=== PATIENT | female | born 1985 | race Asian ===

== ENCOUNTER 2018-11-15 11:50 | Inpatient (IN) | payer MEDICAID ==
[~2018-11-15] VITALS: Ht 154.9 cm; Wt 57.6 kg
--- NOTE | 2018-11-15 11:54 | PREOPHP ---
DATE OF ADMISSION: 11/15/2018 HISTORY OF PRESENT ILLNESS: This is a 33-year-old lady, 3, para 2, EDC November 22, 2018, at 39 weeks . Admitted to labor and delivery area for repeat . She had her EDC of October 292018, at 39 weeks , admitted for repeat . She has 2 previous C-sections. The pr ocedure was explained to the patient and she understood everything totally. The risks, benefits, and alternatives were discussed with her as well. PAST PERSONAL HISTORY: No history of diabetes, TB, asthma. ALLERGIES: NO ALLERGIES. SOCIAL HISTORY: The patient does not smoke. She does drink. She does not take any drugs except her iron and vitamins. OBSTETRICAL HISTORY: 3, para 2. Her first delivery was in 2010, second was in 2014, both by . FAMILY HISTORY: Father has hypertension. The patient is 3, para 2 with 2 previous s. REVIEW OF SYSTEMS: CARDIOVASCULAR: No chest pains. RESPIRATORY: No cough. GASTROINTESTINAL: No diarrhea, no vomiting. GENITOURINARY: No dysuria. PHYSICAL EXAMINATION: GENERAL: Reveals a conscious, coherent lady and in no acute distress. VITAL SIGNS: Blood pressure 130/90, pulse rate 80 per minute, respirations 16. BREASTS, HEART AND LUNGS: Within normal limits. ABDOMEN: Soft. No organomegaly. TRACK RIDER AND PELVIC: heart tones 140 per minute. Pelvic exam revealed the cervix to be closed, sta tion floating in cephalic presentation with the bag of water intact. EXTREMITIES: No pedal edema. ADMITTING DIAGNOSIS: A 39 weeks' intrauterine with 2 previous C-sections. The patient was planned to have a repeat . The procedure was explained to the patient, and she understood everything totally. The risks, benefits, and alternatives were discussed with her as well including tubal ligation. Dictated By: MICHELLE LIN/BORA Conf#: [id number] DID#: [id number]
[2018-11-15 12:05] VITALS: Ht 154.9 cm; Wt 57.6 kg
[2018-11-15 12:30] VITALS: BP 111/56; PULSE 91; RESP 18
[2018-11-15] MEDS ORDERED: CEFAZOLIN 2 GM/50 ML (PMX) 50 ML IVPB SCH (12:30)
[2018-11-15] MEDS ORDERED: PREN-93 PO (12:30)
[2018-11-15] MEDS ORDERED: OXYTOCIN 30 UNITS/LR 500 ML IV SCH ×2 (12:30→15:21)
[2018-11-15] MEDS ORDERED: METHYLERGONOVINE 0.2 MG INJ IM PRN ×2 (12:30→15:30)
[2018-11-15] MEDS ORDERED: MISOPROSTOL 200 MCG TAB PR PRN ×2 (12:30→15:30)
[2018-11-15] MEDS ORDERED: CARBOPROST 250 MCG INJ IM PRN ×2 (12:30→15:30)
[2018-11-15] MEDS ORDERED: OXYTOCIN 30 UNITS/LR 500 ML IV PRN ×2 (12:30→15:30)
[2018-11-15] MEDS: LACTATED RINGER'S 1,000 ML IV SCH ×2 (12:32→22:44)
--- NOTE | 2018-11-15 13:00 | PREAC ---
Date/Time of Note Date/Time of Note DATE: 11/15/18 TIME: 12:59 Anesthesia Eval and Record Evaluation Time Pre-Procedure Interview DATE: 11/15/18 TIME: 12:59 Age 33 Sex female NPO: 8 hrs Preoperative diagnosis iup at 39 weeks Planned procedure repeat c section Past Medical History Past Medical History: None Surgery & Anesthesia Issues No known issue Meds Anticoagulation: No Beta Sarah within 24 hr: No Reason Beta Sarah not given: Pt. not on B-Sarah Reported Medications Vit No.124/Iron/FA ( Vitamin Tablet) 1 Each Tablet, 1 EACH PO DAILY, TAB 11/15/18 Current Medications Lactated Ringer's 1,000 ml @ 125 mls/hr Q8H IV Last administered on 11/15/18at 12:32; Admin Dose 125 MLS/HR; Start 11/15/18 at 12:06 Cefazolin Sodium/ Dextrose 50 ml @ 100 mls/hr ONCE IVPB ; Start 11/15/18 at 12:30 Oxytocin/Lactated Ringer's 500 ml @ 125 mls/hr POST IV ; Start 11/15/18 at 12:30 Oxytocin/Lactated Ringer's 500 ml @ 0 mls/hr ONCE PRN IV .VAGINAL BLEEDING; Start 11/15/18 at 12:30 Methylergonovine Maleate (Methergine) 0.2 mg ONCE PRN IM .VAGINAL BLEEDING; Start 11/15/18 at 12:30 Carboprost Tromethamine (Hemabate) 250 mcg ONCE PRN IM .VAGINAL BLEEDING; Start 11/15/18 at 12:30 Misoprostol (Cytotec) 1,000 mcg ONCE PRN LA .VAGINAL BLEEDING; Start 11/15/18 at 12:30 Meds reviewed: Yes Allergies Coded Allergies: No Known Allergy (Unverified , 11/15/18) Allergies Reviewed: Yes Labs/Studies Labs Reviewed: Reviewed by anesthesiologist Result Diagram: 11/15/18 1205 Laboratory Tests 11/15/18 12:05 test: Positive Pre-procedure Exam Last vitals Vital Signs Date Temp Pulse Resp B/P (MAP) Pulse Ox O2 O2 Flow FiO2 Time Delivery Rate 11/15/18 98.7 91 18 111/56 Room Air 12:30 (74) Airway: Adequate mouth opening, Adequate thyromental dist Mallampati: Mallampati I Teeth: Normal Lung: Normal Heart: Normal ASA Physical Status ASA physical status: 2 Emergency: None Planned Anesthetic Neuraxial: Spinal Planned Pain Management Sub-arachniod narcotics Pre-operative Attestations Prior to commencing anesthesia and surgery, the patient was re-evaluated, there was verification of: *The patient's identity *The results of appropriate recent lab work and preoperative vital signs *The above evaluation not changing prior to induction *Anesthetic plan, risk benefits, alternative and complications discussed with patient/family; questions answered; patient/family understands, accepts and wishes to proceed. LANCE MENDENHALL Nov 15, 2018 13:00
[2018-11-15] MEDS ORDERED: DEXAMETHASONE 4 MG/ML 1 ML INJ ONE (14:15)
[2018-11-15] MEDS ORDERED: ONDANSETRON 4 MG INJ ONE (14:15)
[2018-11-15] MEDS ORDERED: OXYTOCIN 30 UNITS/LR 500 ML IV ONE (14:16)
[2018-11-15] MEDS ORDERED: PHENYLephrine (100 MCG/ML) 10ML SYG ONE (14:28)
[2018-11-15] MEDS ORDERED: morphine SULFATE/PF (10 MG/10 ML) INJ ONE (14:28)
[2018-11-15] MEDS ORDERED: TRIAMCINOLONE ACET 40 MG/ML INJ INJ STA ×2 (14:40)
[2018-11-15] MEDS ORDERED: HYDROmorphONE 0.5 MG/0.5 ML SYG IV PRN ×2 (15:00)
[2018-11-15] MEDS ORDERED: ZOLPIDEM 5 MG TAB PO PRN (15:00)
[2018-11-15] MEDS ORDERED: NALOXONE (0.4 MG/ML) INJ IV PRN (15:00)
[2018-11-15] MEDS ORDERED: KETOROLAC 30 MG INJ IV PRN (15:00)
[2018-11-15] MEDS ORDERED: DIPHENHYDRAMINE 50 MG INJ IV PRN (15:00)
[2018-11-15] MEDS ORDERED: ONDANSETRON 4 MG INJ IV PRN (15:00)
[2018-11-15] MEDS ORDERED: LACTATED RINGER'S 1,000 ML IV SCH (15:21)
--- NOTE | 2018-11-15 15:21 | OPPN ---
Date/Time of Note Date/Time of Note DATE: 11/15/18 TIME: 15:20 Operative Report Planned Procedure Procedure date Nov 15, 2018 Procedure(s) REPEAT CSECTION Performed by see signature line Accountant Machine Processing: CHARLES CRUZ MD 2nd Accountant Machine Processing none Pre-procedure diagnosis 39 WEEKS IUP PREVIOS CSECTION [id number] Anesthesia Type: [id number] spinal Post-Procedure Post-procedure diagnosis 39 WEEKS IUP PREVIOS CSECTION Findings Live Baby BOY, Apgars 8and 9, [id number] 8OZ Estimated Blood Loss: 500 - 600 mls Specimen(s) none Grafts/Implant(s) PLACENTA Complication(s) none MICHELLE AYALA MD Nov 15, 2018 15:21
[2018-11-15] MEDS ORDERED: LANOLIN HPA 1 PKT TOP PRN (15:30)
[2018-11-15] MEDS ORDERED: METHYLERGONOVINE 0.2 MG TAB PO PRN (15:30)
--- NOTE | 2018-11-15 15:43 | PAC ---
Date/Time of Note Date/Time of Note DATE: 11/15/18 TIME: 15:42 Post-Anesthesia Notes Post-Anesthesia Note Last documented vital signs Vital Signs Date Temp Pulse Resp B/P (MAP) Pulse Ox O2 O2 Flow FiO2 Time Delivery Rate 11/15/18 98.7 91 18 111/56 97 Room Air 1540 (74) Activity: WNL Respiratory function: WNL Cardiovascular function: WNL Mental status: Baseline Pain reasonably controlled: Yes Hydration appropriate: Yes Nausea/Vomiting absent: Yes LANCE MENDENHALL Nov 15, 2018 15:43
[2018-11-15 17:26] VITALS: BP 112/69; PULSE 66; RESP 18
[2018-11-15 18:49] VITALS: BP 117/76; PULSE 67; RESP 67
[2018-11-15 20:00] VITALS: BP 117/65; PULSE 66; RESP 19
[2018-11-15] MEDS: SENNA/DOCUSATE NA (8.6MG/50MG) TAB PO SCH (21:26)
[2018-11-16] VITALS: BP 105/65; PULSE 61
[2018-11-16 04:00] VITALS: BP 106/66; PULSE 62; RESP 19
[2018-11-16] MEDS: LACTATED RINGER'S 1,000 ML IV SCH ×3 (06:42→20:06)
[2018-11-16 07:45] VITALS: BP 91/53; PULSE 65; RESP 18
[2018-11-16] MEDS: SENNA/DOCUSATE NA (8.6MG/50MG) TAB PO SCH ×2 (09:00→20:30)
[2018-11-16] MEDS ORDERED: HYDROCODONE/APAP (5/325) TAB PO PRN ×2 (09:30)
--- NOTE | 2018-11-16 09:39 | OPR ---
DATE OF OPERATION: 11/15/2018 PREOPERATIVE DIAGNOSIS: A 39 weeks' intrauterine , with 2 previous sections, disch arged, a repeat section. POSTOPERATIVE DIAGNOSIS: A 39 weeks' intrauterine , with 2 previous sections, disc harged, a repeat . OPERATION PERFORMED: Repeat low transverse section. SURGEON: Michelle Ayala MD ARCHITECTURAL ENGINEER: Dr. Mendez ANESTHESIA: Spinal. ANESTHESIOLOGIST: Dr. Tena. OPERATION PERFORMED: Repeat low transverse section. OPERATIVE TECHNIQUE: Under spinal anesthesia, the patient was prepped and draped in the usual fashio n for abdominal surgery. After checking for the effect of the anesthesia, Pfannenstiel incision, 10 cm skin incision was performed. Prior to the surgery it was discussed with the patient and with her the type of incision to be done and she agreed to go for the Pfannenstiel incision. She has a long midline incision from her 2 previous section. Then, a Pfannenstiel incision, 10 cm s kin incision was performed. The incision was carried from the skin up to the fascia. Upon opening t he skin up to the fascia, small blood vessels were noted to be oozing and these were all cauterized. Fascia was opened transversely followed by splitting the muscles vertical and the peritoneum vertica lly. Upon opening the abdominal cavity, the bladder blade was put in place. No adhesions were noted . An incision was performed on the lower uterine segment. The incision was carried from the serosa up to the endometrium, and the marian was carried sideways with the aid of my 2 fingers. My left hand was inserted on the lower segment of the uterus and the bag of water was ruptured. Clear fluid was n oted. Baby's head was delivered. Baby's airways was quickly suctioned with amniotic fluid. There w as 1 loop of cord around the baby's neck that needs to be released prior to the delivery of the rest of the body of the baby. The baby was quickly suctioned with amniotic fluid. Baby's cord was clampe d after 30 seconds and baby was handed to the staff respiratory therapist and to the nursery nurse. The placent a was delivered manually and complete. The uterus was exteriorized. The uterus was cleansed with we t lap sponge to make sure that no membranes were left behind. After correct sponge count, the uterus was closed in the usual fashion using #1 chromic for the first layer, continuous locking sutur e was used followed by #1 chromic for the second layer, imbricating sutures were used. Bleeders were checked, and there was no bleeding noted. After checking for any bleeders in which there were none, both tubes and ovaries were inspected. They were healthy looking. Broad ligament were checked for any hematoma and there was none noted. The uterus was put back to the pelvic cavity. Once again, ut erine incision was checked for any bleeders and there was no bleeding noted. After correct sponge co unt, needle count and instrument count as confirmed by the pharmacy resource tech and drilling contractor, the abdomen was closed in the usual fashion using 0 Vicryl for the peritoneum, 0 Vicryl for the muscles, for the fas shayan 0 Vicryl continuous stitch was used followed by a few [id number] suture for the subcutaneous tissue, it was closed with 3-0 Vicryl and the skin was closed with 3-0 Vicryl, subcuticular suture w as used. The patient tolerated the procedure well. The skin was infiltrated with Kenalog cream 40 i n 10 mL to prevent keloid formation. She had keloid formation from the first 2 C-sections, so the sk in care solution was injected beneath the skin along the incision. Estimated blood loss about 600 mL . Vital signs were stable during and after the procedure. She delivered a healthy baby boy on 11/15, 8 and 9, at 1434 p.m. weighing 6 pounds 8 ounces, 2945 grams, 19 inches long. Dictated By: MICHELLE AYALA MD NS/BORA Conf#: [id number] DID#: [id number] CC: KENDAL MIRANDA MD;*EndCC*
[2018-11-16 12:13] VITALS: BP 95/51; PULSE 66; RESP 18
[2018-11-16 15:30] VITALS: BP 100/58; PULSE 73; RESP 16
--- NOTE | 2018-11-16 15:38 | PN ---
Date/Time of Note Date/Time of Note DATE: 11/16/18 TIME: 15:37 Assessment/Plan VTE Prophylaxis Risk score (from Ns)>0 risk: 1 SCD applied (from Ns): Yes Pharmacological prophylaxis: NA/contraindicated Pharm contraindication: low risk/ambulating Lines/Catheters IV Catheter Type (from Nrs): Peripheral IV Assessment/Plan Assessment/Plan POSTCSECTION DAY 1 ORDERED ADVANCE DIET TOLERATED CBC ON 3RD POSTOP DAY Result Diagram: 11/16/18 0629 11/16/18 0629 Results 24hrs Laboratory Tests Test 11/16/18 05:58 11/16/18 06:29 Lab Scanned Report REFERENCE LAB White Blood Count 13.8 #H Red Blood Count 3.56 L Hemoglobin 11.3 L Hematocrit 33.8 L Mean Corpuscular Volume 94.9 Mean Corpuscular Hemoglobin 31.7 Mean Corpuscular Hemoglobin Concent 33.4 Red Cell Distribution Width 13.1 Platelet Count 199 Mean Platelet Volume 10.1 Immature Granulocytes % 0.500 H Neutrophils % 80.4 H Lymphocytes % 13.6 L Monocytes % 5.4 Eosinophils % 0.0 Basophils % 0.1 Nucleated Red Blood Cells % 0.0 Immature Granulocytes # 0.070 H Neutrophils # 11.1 H Lymphocytes # 1.9 Monocytes # 0.8 Eosinophils # 0.0 Basophils # 0.0 Nucleated Red Blood Cells # 0.0 Sodium Level 138 Potassium Level 4.1 Chloride Level 107 Carbon Dioxide Level 24 Anion Gap 7 Blood Urea Nitrogen 11 Creatinine 0.59 Est Glomerular Filtrat Rate mL/min > 60 Glucose Level 83 Calcium Level 8.6 Subjective 24 Hr Interval Summary Free Text/Dictation POST CSECTION DAY 1 COMPLAIN OF INCISIONAL PAINS GOOD URINE OUTPUT PASSING GAS PER RECTUM NO BOWEL MOVEMENT YET Exam/Review of Systems Exam Vitals Vital Signs Date Temp Pulse Resp B/P (MAP) Pulse Ox O2 O2 Flow FiO2 Time Delivery Rate 11/16/18 98.1 66 18 95/51 (66) 98 Room Air 12:13 Intake and Output 11/15/18 11/15/18 11/16/18 1515:00 23:00 07:00 IntakeIntake Total 1300 ml 1000 ml OutputOutput Total 800 ml 1400 ml BalanceBalance 500 ml -400 ml Exam VITAL SIGNS STABLE: YES AFEBRILE: YES BREAST NOT ENGORGED, NON-TENDER, NO APPRECIABLE MASS: YES LUNGS CLEAR, NO RALES, WHEEZES, RHONCHI: YES SINUS RHYTHM WITHOUT MURMUR: YES ABDOMEN: NON-TENDER FUNDUS: BELOW UMBILICUS BOWEL SOUNDS: PRESENT UTERUS: FIRM INCISION (CLEAN, DRY, AND INTACT): YES LOCHIA: LIGHT DEEP TENDON REFLEXES: 0 EXTREMITIES: NO CALF TENDERNESS EDEMA SCALE: NONE Results Results 24hrs Laboratory Tests Test 11/16/18 05:58 11/16/18 06:29 Lab Scanned Report REFERENCE LAB White Blood Count 13.8 #H Red Blood Count 3.56 L Hemoglobin 11.3 L Hematocrit 33.8 L Mean Corpuscular Volume 94.9 Mean Corpuscular Hemoglobin 31.7 Mean Corpuscular Hemoglobin Concent 33.4 Red Cell Distribution Width 13.1 Platelet Count 199 Mean Platelet Volume 10.1 Immature Granulocytes % 0.500 H Neutrophils % 80.4 H Lymphocytes % 13.6 L Monocytes % 5.4 Eosinophils % 0.0 Basophils % 0.1 Nucleated Red Blood Cells % 0.0 Immature Granulocytes # 0.070 H Neutrophils # 11.1 H Lymphocytes # 1.9 Monocytes # 0.8 Eosinophils # 0.0 Basophils # 0.0 Nucleated Red Blood Cells # 0.0 Sodium Level 138 Potassium Level 4.1 Chloride Level 107 Carbon Dioxide Level 24 Anion Gap 7 Blood Urea Nitrogen 11 Creatinine 0.59 Est Glomerular Filtrat Rate mL/min > 60 Glucose Level 83 Calcium Level 8.6 Medications Medication Current Medications Lactated Ringer's 1,000 ml @ 125 mls/hr Q8H IV Last administered on 11/16/18at 06:42; Admin Dose 125 MLS/HR; Start 11/15/18 at 12:06 Oxytocin/Lactated Ringer's 500 ml @ 0 mls/hr ONCE PRN IV .VAGINAL BLEEDING; Start 11/15/18 at 12:30 Methylergonovine Maleate (Methergine) 0.2 mg Q6H PRN PO .VAGINAL BLEEDING; Start 11/15/18 at 15:30 Simethicone (Mylicon) 160 mg Q8H PRN PO .GAS; Start 11/15/18 at 15:30 Senna/Docusate Sodium (Senokot-S) 1 tab BID PO Last administered on 11/15/18at 21:26; Admin Dose 1 TAB; Start 11/15/18 at 21:00 Lanolin (Lanolin Hpa) 1 applic BEDSIDE MEDICATION PRN TOP .NIPPLES; Start 11/15/18 at 15:30 Diphtheria/ Tetanus/Acell Pertussis (Adacel) 0.5 ml ONCE ONCE IM* ; Start 11/18/18 at 09:00; Stop 11/18/18 at 09:01 Measles/Mumps/ Rubella Vaccine Live (Mmr Ii Vaccine) 0.5 ml ONCE ONCE SC* ; Start 11/18/18 at 09:00; Stop 11/18/18 at 09:01 Oxytocin/Lactated Ringer's 500 ml @ 0 mls/hr ONCE PRN IV .VAGINAL BLEEDING; Start 11/15/18 at 15:30 Methylergonovine Maleate (Methergine) 0.2 mg ONCE PRN IM .VAGINAL BLEEDING; Start 11/15/18 at 15:30 Carboprost Tromethamine (Hemabate) 250 mcg ONCE PRN IM .VAGINAL BLEEDING; Start 11/15/18 at 15:30 Misoprostol (Cytotec) 1,000 mcg ONCE PRN ME .VAGINAL BLEEDING; Start 11/15/18 at 15:30 Ibuprofen (Motrin) 800 mg Q6H PRN PO MILD PAIN LEVEL 1-3; Start 11/16/18 at 14:16 Acetaminophen/ Hydrocodone Bitart ([place] (5/325)) 1 tab Q4H PRN PO MODERATE PAIN LEVEL 4-6; Start 11/16/18 at 09:30 Acetaminophen/ Hydrocodone Bitart ([place] (5/325)) 2 tab Q4H PRN PO SEVERE PAIN LEVEL 7-10; Start 11/16/18 at 09:30 MICHELLE AYALA MD Nov 16, 2018 15:38
[2018-11-16] MEDS: IBUPROFEN 800 MG TAB PO PRN (17:12)
[2018-11-16 20:30] VITALS: BP 101/56; PULSE 73; RESP 18
[2018-11-17] MEDS: IBUPROFEN 800 MG TAB PO PRN ×3 (03:53→19:21)
[2018-11-17 04:00] VITALS: BP 96/54; PULSE 73; RESP 18
[2018-11-17] MEDS: LACTATED RINGER'S 1,000 ML IV SCH ×3 (04:06→20:06)
[2018-11-17 08:00] VITALS: BP 109/53; PULSE 63; RESP 18
[2018-11-17] MEDS ORDERED: BISACODYL 10 MG SUPP PR ONE (10:30)
[2018-11-17] MEDS ORDERED: MAGNESIUM HYDROXIDE 30ML CUP PO ONE (10:30)
[2018-11-17] MEDS: SENNA/DOCUSATE NA (8.6MG/50MG) TAB PO SCH ×2 (11:00→21:10)
--- NOTE | 2018-11-17 11:25 | OPPN ---
Date/Time of Note Date/Time of Note DATE: 11/17/18 TIME: 11:24 Anesthesia Follow up Anesthesia Follow up Last documented vital signs Vital Signs Date Temp Pulse Resp B/P (MAP) Pulse Ox O2 O2 Flow FiO2 Time Delivery Rate 11/17/18 98.2 63 18 109/53 1100 (71) 11/17/18 Room Air 04:00 11/16/18 98 12:13 Respiratory function: WNL Cardiovascular function: WNL LANCE MENDENHALL Nov 17, 2018 11:24
[2018-11-17 16:06] VITALS: BP 114/57; PULSE 95; RESP 18
--- NOTE | 2018-11-17 19:13 | PN ---
Date/Time of Note Date/Time of Note DATE: 11/17/18 TIME: 19:11 Assessment/Plan VTE Prophylaxis Risk score (from Nsg)>0 risk: 1 SCD applied (from Nsg): No SCD contraindicated: low risk/ambulating Pharmacological prophylaxis: NA/contraindicated Pharm contraindication: low risk/ambulating Lines/Catheters IV Catheter Type (from Nrsg): Saline Lock Assessment/Plan Assessment/Plan POST CSECTION DAY 2 HOME TOMORROW CBC TOMORROW COUNSELED INSTRUCTED PRESCRIPTION GIVEN FOR PAIN RETURN TO CLINIC IN 2 WEEKS CALL OFFICE IF THERE IS ANY PROBLEM OR CONCERN CONTINUE WITH VITAMINS OD AND FERROUS SULFATE 325MG PO TID DIET ADVISED Result Diagram: 11/16/1862811/16/18628 Subjective 24 Hr Interval Summary Free Text/Dictation POST CSECTION DAY 2 LITTLE BOWEL MOVEMENT GOOD URINE OUTPUT FEELS LESS INCISIONAL PAINS Exam/Review of Systems Exam Vitals Vital Signs Date Temp Pulse Resp B/P (MAP) Pulse Ox O2 O2 Flow FiO2 Time Delivery Rate 11/17/18 98.4 95 18 114/57 Room Air 16:06 (76) 11/16/18 98 12:13 Intake and Output 11/16/18 11/16/18 11/17/18 1515:00 23:00 07:00 IntakeIntake Total 1200 ml OutputOutput Total 1700 ml 850 ml BalanceBalance -500 ml -850 ml Exam VITAL SIGNS STABLE: YES AFEBRILE: YES BREAST NOT ENGORGED, NON-TENDER, NO APPRECIABLE MASS: YES LUNGS CLEAR, NO RALES, WHEEZES, RHONCHI: YES SINUS RHYTHM WITHOUT MURMUR: YES ABDOMEN: NON-TENDER FUNDUS: BELOW UMBILICUS BOWEL SOUNDS: PRESENT UTERUS: FIRM INCISION (CLEAN, DRY, AND INTACT): YES LOCHIA: LIGHT DEEP TENDON REFLEXES: 0 EXTREMITIES: NO CALF TENDERNESS EDEMA SCALE: NONE Medications Medication Current Medications Lactated Ringer's 1,000 ml @ 125 mls/hr Q8H IV Last administered on 11/16/18at 06:42; Admin Dose 125 MLS/HR; Start 11/15/18 at 12:06 Oxytocin/Lactated Ringer's 500 ml @ 0 mls/hr ONCE PRN IV .VAGINAL BLEEDING; Start 11/15/18 at 12:30 Methylergonovine Maleate (Methergine) 0.2 mg Q6H PRN PO .VAGINAL BLEEDING; Start 11/15/18 at 15:30 Simethicone (Mylicon) 160 mg Q8H PRN PO .GAS; Start 11/15/18 at 15:30 Senna/Docusate Sodium (Senokot-S) 1 tab BID PO Last administered on 11/17/18at 11:00; Admin Dose 1 TAB; Start 11/15/18 at 21:00 Lanolin (Lanolin Hpa) 1 applic BEDSIDE MEDICATION PRN TOP .NIPPLES; Start 11/15/18 at 15:30 Diphtheria/ Tetanus/Acell Pertussis (Adacel) 0.5 ml ONCE ONCE IM* ; Start 11/18/18 at 09:00; Stop 11/18/18 at 09:01 Measles/Mumps/ Rubella Vaccine Live (Mmr Ii Vaccine) 0.5 ml ONCE ONCE SC* ; Start 11/18/18 at 09:00; Stop 11/18/18 at 09:01 Oxytocin/Lactated Ringer's 500 ml @ 0 mls/hr ONCE PRN IV .VAGINAL BLEEDING; Start 11/15/18 at 15:30 Methylergonovine Maleate (Methergine) 0.2 mg ONCE PRN IM .VAGINAL BLEEDING; Start 11/15/18 at 15:30 Carboprost Tromethamine (Hemabate) 250 mcg ONCE PRN IM .VAGINAL BLEEDING; Start 11/15/18 at 15:30 Misoprostol (Cytotec) 1,000 mcg ONCE PRN DC .VAGINAL BLEEDING; Start 11/15/18 at 15:30 Ibuprofen (Motrin) 800 mg Q6H PRN PO MILD PAIN LEVEL 1-3 Last administered on 11/17/18at 11:00; Admin Dose 800 MG; Start 11/16/18 at 14:16 Acetaminophen/ Hydrocodone Bitart ([place] (5/325)) 1 tab Q4H PRN PO MODERATE PAIN LEVEL 4-6; Start 11/16/18 at 09:30 Acetaminophen/ Hydrocodone Bitart ([place] (5/325)) 2 tab Q4H PRN PO SEVERE PAIN LEVEL 7-10; Start 11/16/18 at 09:30 MICHELLE AYALA MD Nov 17, 2018 19:13
[2018-11-17 20:00] VITALS: BP 115/62; PULSE 74; RESP 18
[2018-11-18 04:00] VITALS: BP 104/55; PULSE 59; RESP 18
[2018-11-18] MEDS: LACTATED RINGER'S 1,000 ML IV SCH (04:06)
[2018-11-18] MEDS: IBUPROFEN 800 MG TAB PO PRN (07:02)
[2018-11-18 08:00] VITALS: BP 115/62; PULSE 74; RESP 19
[2018-11-18] MEDS ORDERED: MEASLES,MUMPS,RUBELLA VACCINE INJ SC* ONE (09:00)
[2018-11-18] MEDS ORDERED: DIPHTH/TET/ACEL PERTUSS (ADULT) 0.5 ML VIAL IM* ONE (09:00)
[2018-11-18] MEDS: SENNA/DOCUSATE NA (8.6MG/50MG) TAB PO SCH (09:33)
--- NOTE | 2018-11-19 15:11 | DELSUM ---
Delivery Summary A-C Datetime Report Generated by CPN: 11/19/2018 15:11 DELIVERY PERSONNEL Nutrition Therapist: ABDI, NOLBERTO MATERNAL INFORMATION Delivery Anesthesia: Spinal Medications in Delivery: SEE ANESTHESIA RECORD Delivery QBL (ml): 600 Placenta Cultured: No Maternal Complications: Other Other Maternal Complications: POSITIVE CHLAMYDIA TREATED LABOR SUMMARY EDC: 11/22/2018 00:00 No. Babies in Womb: 1 Attempted: No Labor Anesthesia: None LABOR INFORMATION Reason for Induction: Not Applicable Oxytocin: N/A Group B Beta Strep: Negative Antibiotics # of Doses: 1 Antibiotics Time of Last Dose: 11/15/2018 14:18 Steroids Given: None Reason Steroids Not Administered: Not Applicable MEMBRANES Membranes Rupture Method: Artificial Rupture of Membranes: 11/15/2018 14:34 Length of Rupture (hr): 0.00 Amniotic Fluid Color: Clear Amniotic Fluid Amount: Moderate Amniotic Fluid Odor: None STAGES OF LABOR Stage 3 hr: 0 Stage 3 min: 1 CSECTION DELIVERY Primary Indication: Repeat Elective CSection Urgency: Non Elective CSection Incidence: Repeat Labor: No Labor Elective: Nonelective CSection Incision: Lower Uterine Transverse BABY A INFORMATION Infant Delivery Date/Time: 11/15/2018 14:34 Method of Delivery: Born in Route : No : N/A Forceps: N/A Vacuum Extraction: N/A Shoulder Dystocia : N/A SHOULDER DYSTOCIA BABY A Infant Delivery Date/Time: 11/15/2018 14:34 PRESENTATION/POSITION BABY A Presentation: Cephalic Cephalic Presentation: Vertex Breech Presentation: N/A PLACENTA INFORMATION BABY A Placenta Delivery Time : 11/15/2018 14:35 Placenta Method of Delivery: Manual Removal Placenta Status: Delivered SCORES BABY A Heart Rate 1 min: >100 bpm Resp Effort 1 min: Good Cry Reflex Irritability 1 min: Cough/Sneeze/Pulls Away Muscle Tone 1 min: Active Motion Color 1 min: Blue/Pale Resuscitation Effort 1 min: Tactile Stimulation SCORE 1 MIN: 8 Heart Rate 5 min: >100 bpm Resp Effort 5 min: Good Cry Reflex Irritability 5 min: Cough/Sneeze/Pulls Away Muscle Tone 5 min: Active Motion Color 5 min: Body [place], Extremit Blue Resuscitation Effort 5 min: Tactile Stimulation SCORE 5 MIN: 9 INFANT INFORMATION BABY A Gestational Age at Delivery: 39.0 Gestational Status: Full Term- 39- 40.6 Weeks Outcome : Liveborn Infant Condition : Stable Infant Sex: Male IDENTIFICATION/MEDS BABY A ID Band Number: [id number] ID Band Location: Right Leg; Left Arm Sensor Applied: Yes Sensor Number: [id number] Sensor Location : Cord Clamp Vitamin K Given : Not Given Erythromycin Given: Not Given WEIGHT/LENGTH BABY A Birthweight (gm): 2945 Infant Weight (lb): 6 Weight (oz): 8 Length (in): 19.00 Length (cm): 48.26 CORD INFORMATION BABY A No. Cord Vessels: 3 Nuchal Cord : N/A Cord Blood Taken: Yes Infant Suction: Mouth; Nose ASSESSMENT BABY A Complications: None Physical Findings at Delivery: Within Normal Limits Respirations: Appears Normal Forger Helper/ALS Called : Yes Care By: RT/RN Transferred To: Remains with Mother
== END 2018-11-18 13:20 | disposition home or self-care (01) | DRG 788 ==
LOC: L-D 11:50 → PP1 18:15
PROVIDERS: ADMIT Obstetrics & Gynecology; ATTEND Obstetrics & Gynecology
PROC: 10D00Z1 Extraction of Products of Conception, Low, Open Approach (ICD-10-PCS; principal; 2018-11-15 15:30)
DX: O34.211 Maternal care for low transverse scar from previous cesarean delivery (principal); Z3A.39 39 weeks gestation of pregnancy; Z37.0 Single live birth
CPT/HCPCS: 80048; 85025; 85610; 85730; 86592; 86703; 86850; 86900; 86901; 87340; 90715; 99464; J0690; J1100; J1200; J1885; J2274; J2370; J2405; J2590; J7120